=== PATIENT | female | born 1980 | race Caucasian/White ===

== ENCOUNTER 2019-12-07 13:44 | Emergency (ER) | payer OTHER ==
[2019-12-07] MEDS ORDERED: DIPH/PERTUSS(ACELL)/TETANUS VAC/PF 0.5 ML SYR (>=10YO) IM ONE (14:19)
--- NOTE | 2019-12-07 14:19 | ER Document Report ---
ED Medical Screen (RME) - General Chief Complaint: Finger Injury Stated Complaint: PINKY FINGER SMASHED BY 5LB WEIGHT Time Seen by Provider: 12/07/19 14:13 - HPI Notes: 12/07/19 14:18 Patient is a 39-year-old female currently 21 weeks presents complaining of injury to her right fifth finger prior to arrival. Patient states that she was trying to step over a baby gate when she was only a 5 pound weight and fell on her hand. Patient was sent by urgent care for the lacerations to her finger and injury. No other pelvic pain, bleeding, or back pain. Unknown last tetanus. I have treated and performed a rapid initial assessment of this patient. A comprehensive ED assessment and evaluation of the patient, analysis of test results and completion of medical decision making process will be conducted by additional ED providers. PHYSICAL EXAMINATION: GENERAL: Well-appearing, well-nourished and in no acute distress. A&Ox4. Answers questions appropriately. Right hand: There is swelling and bruising noted to the right fifth finger with blowout appearing lacerations noted. - Related Data Allergies/Adverse Reactions: No Known Allergies Allergy (Verified 12/07/19 14:14) Physical Exam - Vital signs Vitals: Temp Pulse Resp BP Pulse Ox 98.3 F 78 16 139/78 H 100 12/07/19 13:59 12/07/19 13:59 12/07/19 13:59 12/07/19 13:59 12/07/19 13:59 Course - Vital Signs Vital signs: Temp Pulse Resp BP Pulse Ox 98.3 F 78 16 139/78 H 100 12/07/19 13:59 12/07/19 13:59 12/07/19 13:59 12/07/19 13:59 12/07/19 13:59
[2019-12-07] MEDS ORDERED: AMPICILLIN SOD/SULBACTAM 3 GM VIAL IV ONE (14:40)
--- NOTE | 2019-12-07 14:59 | RADIOLOGY REPORT (SQ) ---
EXAM DESCRIPTION: HAND RIGHT 3 VIEWS COMPLETED DATE/TIME: 12/07/2019 2:44 pm REASON FOR STUDY: crush injury/blow-out lac Rt 5th finger prox. COMPARISON: None. EXAM PARAMETERS: NUMBER OF VIEWS: Three views. TECHNIQUE: AP, lateral and oblique radiographic images acquired of the right hand. LIMITATIONS: None. FINDINGS: MINERALIZATION: Normal. BONES: Acute displaced fracture of the proximal 5th phalanx. There is no other fracture. JOINTS: No dislocations. SOFT TISSUES: Soft tissue swelling and subcutaneous emphysema around the fractured proximal 5th phala nx. OTHER: There is no radiopaque foreign body. IMPRESSION: Acute displaced fracture of the proximal 5th phalanx. The presence of subcutaneous emph ysema suggests an open fracture. TECHNICAL DOCUMENTATION: JOB ID: [id number] 2010 [employer]- All Rights Reserved Reading location - IP/workstation name: [email or web address]
[2019-12-07] MEDS ORDERED: LIDOCAINE 1% INJ-PF (10 MG/ML) 30 ML SDV INJ ONE (16:49)
--- NOTE | 2019-12-07 18:35 | ER Document Report ---
ED Hand/Wrist Injury - General Chief Complaint: Finger Injury Stated Complaint: PINKY FINGER SMASHED BY 5LB WEIGHT Time Seen by Provider: 12/07/19 14:13 Primary Care Provider: JONATHAN FELIX MD [ACTIVE PROVISIONAL STAFF] - Follow up as needed Mode of Arrival: Ambulatory Information source: Patient Notes: 39-year-old female presented to ED for complaint of injury to her right fifth finger prior to arrival. She is 21 weeks . She is 6 para 4. She states that she was trying to step up with a baby gate when she tripped landing falling landing on her hand with a 5 pound weight loss and landed on her hand. She went to the urgent care and they sent her to the emergency room. She has no other pain or discomfort. She states she does not know when her last tetanus shot was I did review this with Dr. Cooper, who states that she definitely needed to have her tetanus shot today. This patient was seen. She was seen in the triage area and started on Unasyn IV this has been completed. The x-ray was completed which showed an open displaced fracture of the proximal fifth phalanx. TRAVEL OUTSIDE OF THE [place] IN LAST 30 DAYS: No - HPI Injury to: Small finger - Right patient is left-handed dominant Onset: Just prior to arrival Where: Home, Indoors Timing: Still present Quality of pain: Sharp, Throbbing Severity: Severe Pain Level: 5 Context: Fall - Related Data Allergies/Adverse Reactions: No Known Allergies Allergy (Verified 12/07/19 14:14) Past Medical History - General Information source: Patient - Social History Smoking Status: Never Smoker Chew tobacco use (# tins/day): No Frequency of alcohol use: None Drug Abuse: None Lives with: Family Family History: Reviewed & Not Pertinent Patient has suicidal ideation: No Patient has homicidal ideation: No - Past Medical History Cardiac Medical History: Reports: Hx Hypertension Pulmonary Medical History: Reports: None EENT Medical History: Reports: None Neurological Medical History: Reports: None Renal/ Medical History: Reports: None Malignancy Medical History: Reports: None GI Medical History: Reports: None Musculoskeletal Medical History: Reports None Skin Medical History: Reports None Psychiatric Medical History: Reports: None Traumatic Medical History: Reports: None Infectious Medical History: Reports: None Past Surgical History: Reports: Other - PRK Review of Systems - Review of Systems Constitutional: No symptoms reported EENT: No symptoms reported Cardiovascular: No symptoms reported Respiratory: No symptoms reported Gastrointestinal: No symptoms reported Genitourinary: No symptoms reported Female Genitourinary: - 21 weeks 6 para 4 Musculoskeletal: Other - Open fracture right fifth proximal finger Skin: Other - Open fracture right fifth finger Hematologic/Lymphatic: No symptoms reported Neurological/Psychological: No symptoms reported -: Yes All other systems reviewed and negative Physical Exam - Vital signs Vitals: Temp Pulse Resp BP Pulse Ox 98.3 F 78 16 139/78 H 100 12/07/19 13:59 12/07/19 13:59 12/07/19 13:59 12/07/19 13:59 12/07/19 13:59 Interpretation: Normal - General General appearance: Appears well, Alert - HEENT Head: Normocephalic, Atraumatic Eyes: Normal Pupils: PERRL - Respiratory Respiratory status: No respiratory distress Chest status: Nontender Breath sounds: Normal Chest palpation: Normal - Cardiovascular Rhythm: Regular Heart sounds: Normal auscultation Murmur: No - Abdominal Inspection: Gravid female - 21 weeks heart tones 147 Distension: No distension Bowel sounds: Normal Tenderness: Nontender Organomegaly: No organomegaly - Back Back: Normal, Nontender - Extremities General upper extremity: Normal temperature General lower extremity: Normal inspection, Nontender, Normal color, Normal ROM, Normal temperature, Normal weight bearing. No: Maurice's sign Hand: Tender, Ecchymosis, Laceration - Open displaced fracture right fifth proximal finger laceration both sides 1, 3 cm 1, 2 cm, Swelling - Neurological Neuro grossly intact: Yes Cognition: Normal Orientation: AAOx4 [place] Coma Scale Eye Opening: Spontaneous [place] Coma Scale Verbal: Oriented [place] Coma Scale Motor: Obeys Commands [place] Coma Scale Total: 15 Speech: Normal Motor strength normal: LUE, RUE, LLE, RLE Sensory: Normal - Psychological Associated symptoms: Normal affect, Normal mood - Skin Skin Temperature: Warm Skin Moisture: Dry Skin Color: Normal Course - Re-evaluation Re-evalutation: 12/07/19 19:08 Consulted before attempting to reduce and sutured the laceration. She stated that the she would need to be reduced before splinting. I did consult Dr. Felix who is the orthopedic deboning team leader. He stated is was not is important to reduce the fracture as to close the wound and have her follow-up with orthopedics in the morning. He did state that she needed to be started on Keflex and placed in a ulnar gutter splint after suturing the wounds. I consulted Dr. Cooper with his recommendations. She stated the need to at least attempt to reduce it some but if I did not get complete reduction they would be taking her to surgery. The finger was digitally blocked reduction was attempted x3 there was some reduction but not complete normal alignment as I could feel it going into alignment but as soon as I would let go with the finger it would slip back. Postreduction films were taken. The wounds to the medial and lateral side of the finger were loosely closed. Telfa dressing was applied. Patient was given IV Unasyn before the attempted reduction and closure of the lacerations. Patient was discharged home with prescription for Keflex and a [employer] dispense pack. Patient is 21 weeks heart tones were 147 before discharge. Patient was given the name and number for Dr. Felix the retrieval specialist who she is supposed to call in the morning to get a follow-up appointment to have the open fracture surgically repaired. Patient is left-hand dominant. - Vital Signs Vital signs: Temp Pulse Resp BP Pulse Ox 97.4 F 75 20 130/84 H 98 12/07/19 18:45 12/07/19 18:45 12/07/19 18:45 12/07/19 18:45 12/07/19 18:45 - Diagnostic Test Radiology reviewed: Image reviewed, Reports reviewed Procedures - Immobilization Right Hand Time completed: 18:25 Immobilizer type: Ulnar - Ulnar gutter Performed by: PCT Post-Proc Neuro Vasc Exam: Unchanged from pre-exam Alignment checked and good: No - Attempted reduction unable to get perfect alignment - Joint Reduction/Fracture Care Right Finger 5th digit Time completed: 18:00 Consent obtained: Yes - Verbal Conscious sedation: No Pre-procedure NV exam: Yes Fracture: Open Manipulation comment: Exaggeration and direction of the fracture with traction to reduce placemen Post-procedure NV exam: Yes Post-reduction x-ray: Joint not reduced - Displacement improved but not completely reduced Reduction attempts: 3 Complications: No - This was an open fracture - Laceration/Wound Repair Right Finger 5th digit Time completed: 18:20 Wound length (cm): 3 - Medial laceration 3 cm lateral laceration 2 cm Wound's Depth, Shape: Irregular, Other - Open fracture lacerations medial and lateral Laceration pre-procedure: Jorge-Jay applied Anesthetic type: 1% Lidocaine Volume Anesthetic (mLs): 10 - Digital block right fifth finger Wound explored: Contaminated Irrigated w/ Saline (mLs): 1,000 Wound Repaired With: Sutures Suture Size/Type: 4:0, Ethilon Number of Sutures: 7 - m 3 sutures l 2 sutures Complications: Yes - Open fracture Notes: 12/07/19 19:07 Medial laceration had 3 sutures lateral laceration had 2 sutures Discharge - Discharge Clinical Impression: open displaced fracture right 5th finger Condition: Stable Disposition: HOME, SELF-CARE Additional Instructions: You were seen today for an open displaced fracture of your right fifth proximal finger An open fracture has a lot of risk for infection because there is an open into t he fracture. Fractured Finger There is a fracture in your finger. The bone is not straight or in good position to heal. The doctor has assessed the seriousness of the fracture and has explained your treatment plan. Usually the finger will be splinted until you follow-up with orthopedics to have the fracture repaired. The first few days after the injury, the finger should be kept elevated and cold (with ice packs). This decreases the swelling and pain. You should contact the doctor in the morning to schedule repair of this fracture. I.V. ANTIBIOTICS: You have been given an antibiotic by vein. This is done for more serious infections. The IV antibiotics are usually followed by pills. Common side effects of antibiotics include nausea, intestinal cramping, or diarrhea. These are very unusual following a shot. Women may develop vaginal yeast infections, and babies can get yeast (thrush) in the mouth following the use of antibiotics. Contact your physician if you develop significant side effects from this medication. Allergy to this antibiotic can result in hives, wheezing, faintness, or itching. If symptoms of allergy occur, call the doctor at once. If further IV doses of antibiotic are planned, an IV lock may have been placed in your vein. This provides a way to give periodic IV medications (without starting a new IV) while you go about your activities. Don't allow the IV site to be bumped. Don't touch the IV needle. If the tape comes loose, apply more tape to secure the IV. Don't get the IV area wet. If bleeding occurs, remove the bandage. If blood is coming from where the plastic needle enters the skin, apply pressure until the bleeding has stopped. If the blood is coming from the IV cap, grasp the cap with one hand and grasp the wide part of the IV needle with the other hand, then gently twist (clockwise) until the cap is tight. If bleeding continues, return for examination. Call the doctor or come back if you develop chills or fever, or if the IV area becomes swollen, tender, or red. Cephalexin The antibiotic you've been prescribed is a member of the cephalosporin class. This type of antibiotic covers a wide variety of infections, including those of the skin, lungs, and urinary tract. It's useful for staph infections. This antibiotic is slightly similar to the penicillin family. In rare cases, a person who is allergic to penicillin will also be allergic to this medication. If you have had a severe allergic reaction to penicillin, and have not taken this antibiotic since that time, notify your doctor. Antibiotics which cover many germs ("broad spectrum" antibiotics) are more likely to cause diarrhea or "yeast" infections. Women prone to vaginal yeast problems may suffer an attack after taking this antibiotic. In infants, oral thrush (white spots "stuck" on the cheek) or yeast diaper rash may result. See your doctor if these problems occur. Call at once if you develop itching, hives, shortness of breath, or lightheadedness. Oral Narcotic Medication You have been given a [employer] dispense pack for pain control. This medication is a narcotic. It's best taken with food, as nausea can result if taken on an empty stomach. Don't operate machinery or drive within six hours of taking this medic ation. Do not combine this medicine with alcohol, or with any medication which can cause sedation (such as cold tablets or sleeping pills) unless you get permission from the physician. Narcotics tend to cause constipation. If possible, drink plenty of fluids and eat a diet high in fiber and fruits. Do not remove the splint until follow-up with orthopedics. Please call orthopedics in the morning. FOLLOW-UP CARE: If you have been referred to a physician for follow-up care, call the physicians office for an appointment as you were instructed or within the next two days. If you experience worsening or a significant change in your symptoms, notify the physician immediately or return to the Emergency Department at any time for re-evaluation. Prescriptions: Cephalexin Monohydrate [Keflex 500 mg Capsule] 500 mg PO Q6H 5 Days capsule Forms: Elevated Blood Pressure, Special Work Note Referrals: JONATHAN FELIX MD [ACTIVE PROVISIONAL STAFF] - Follow up as needed
[2019-12-07] MEDS ORDERED: HYDROCODONE/ACETAMINOPHEN 5-325 MG (6 TAB/ER DISP) PO PRN (18:36)
--- NOTE | 2019-12-07 18:45 | RADIOLOGY REPORT (SQ) ---
EXAM DESCRIPTION: HAND RIGHT 3 VIEWS COMPLETED DATE/TIME: 12/07/2019 6:13 pm REASON FOR STUDY: Post reduction when called COMPARISON: 12/07/2019 EXAM PARAMETERS: NUMBER OF VIEWS: Three views. TECHNIQUE: AP, lateral and oblique radiographic images acquired of the right hand. LIMITATIONS: None. FINDINGS: Postreduction images of the right hand show slight improved alignment of the 5th proximal phalanx. There is a transverse fracture near the base of the 5th proximal phalanx. IMPRESSION: There is slight improvement in the alignment of the 5th proximal phalanx on these post r eduction images. TECHNICAL DOCUMENTATION: JOB ID: [id number] 2010 [employer]- All Rights Reserved Reading location - IP/workstation name: [email or web address]
[2019-12-07 18:48] VITALS: BP 130/84
== END 2019-12-07 19:03 | disposition home or self-care (01) ==
LOC: ER 13:44
DX: O9A.212 Injury, poisoning and certain other consequences of external causes complicating pregnancy, second trimester (principal); S62.616B Displaced fracture of proximal phalanx of right little finger, initial encounter for open fracture; W19.XXXA Unspecified fall, initial encounter; W20.8XXA Other cause of strike by thrown, projected or falling object, initial encounter; Y93.89 Activity, other specified; Y92.009 Unspecified place in unspecified non-institutional (private) residence as the place of occurrence of the external cause; Z23 Encounter for immunization; O16.2 Unspecified maternal hypertension, second trimester; Z3A.21 21 weeks gestation of pregnancy
CPT/HCPCS: 26725; 99283; 90471; 96365; 73130; 90715; J0295; J3490